=== PATIENT | female | born 1950 | race Two or more races ===

== ENCOUNTER 2025-03-08 09:14 | Outpatient (OUT) | payer MEDICARE, SELFPAY ==
--- OUTSIDE RECORDS SUMMARY | 2025-02-26 10:06 | XMS_ITS | Continuity of Care Document ---
Author Organization [facility] Address Unknown Care Team Providers Care Biology Tutor Name Role Phone HARPER KNIGHT Primary Care Physician Encounter [facility] [id number] Date(s): 02/26/25 - 02/26/[address] [address] Discharge Disposition: Home Attending Physician: NORA MILLARD MD Admitting Physician: NORA MILLARD MD Allergies, Adverse Reactions, Alerts Substance Criticality Severity Reaction Reaction Severity Status penicillins Unable to assess criticality Unknown Active Assessment and Plan Extracted from: Title:Clinical Document Author:NORA MILLARD Date:02/18/25 The patient s history of present illness, physical findings and plan of care have been reviewed. There are no changes. Future Appointments Functional Status 02/26/25 Family Member Travel History No recent t ravel Recent Travel History No recent travel Other exposure to Infectious Disease No Known Exposure/Symptoms Immunizations Given and Recorded Vaccine Date Status Refusal Reason zoster vaccine, inactivated 01/02/23 Recorded zoster vaccine, inactivated 10/30/22 Recorded Medications allopurinol 300 mg oral tablet 1 tab(s) ( 300 mg ), PO, Daily, # 30 tab(s), 0 Refill(s) Start Date: 02/06/23 Status: Ordered CBD Oil CBD Oil, 0 Refill(s) Start Date: 02/18/25 Status: Ordered hydrochlorothiazide-lisinopril 12.5 mg-10 mg oral tablet 1 tab(s), PO, Daily, # 30 tab(s), 0 Refill(s) Start Date: 02/06/23 Status: Ordered Metoprolol Tartrate 50 mg oral tablet 1 tab(s) ( 50 mg ), PO, BID, # 180 tab(s), 0 Refill(s) Start Date: 02/06/23 Status: Ordered Ozempic (1 mg dose) 4 mg/3 mL subcutaneous solution ( 1 mg ), SubQ, qWeek, 0 Refill(s) Start Date: 05/10/23 Status: Ordered sertraline 100 mg oral tablet 1 tab(s) ( 100 mg ), PO, Daily, 0 Refill(s) Start Date: 09/04/22 Status: Ordered Mental Status 02/26/25 Level of Consciousness Alert Problem List Condition Confirmation Course Effective Dates Status Health St atus Informant Arthritis Confirmed Active Lumbar degenerative disc disease Confirmed Active Chronic gout Confirmed Active HTN (hypertension) Confirmed Active Lumbar spondylosis Confirmed Active Prediabetes Confirmed Active Procedures Procedure Date Related Diagnosis Body Site Status Injection of sacroiliac join t using fluoroscopic guidance 1 02/25/25 Complete d Fluoroscopy guided radiofreq uency ablation 2 10/01/24 Completed Fluoroscopy guided radiofreq uency ablation 3 08/20/24 Completed Colonoscopy 01/13/24 Completed Facet joint nerve block 4 10/24/23 Completed Local anesthetic facet joint nerve block 5 08/22/23 Completed Facet joint nerve block 6 08/08/23 Completed Injection of sacroiliac joint 7 07/04/23 Completed Epidural steroid injection 8 05/09/23 Completed Fluoroscopy guided radiofreq uency ablation 9 02/05/23 Completed Facet joint nerve block 10 01/22/23 Completed Facet joint nerve block 11 01/08/23 Completed 1right 2Bilateral T9, 10, 11 3Bilateral L345 4BILATERAL T9, 10, 11 5BILATERAL T9, 10, 11 6BILATERAL T9, T10, T11 MEDIAL BRANCH BLOCK 7BILATERAL 8BILATERAL TFESI L4 9bilateral L2,3 AND L4,5 10BILATERAL L2345 11BILATERAL L2345 Results Laboratory List Name Date Glucose Level POCT 02/26/25 Most recent to oldest [Reference Range]: 1 Glucose, POC [74-118 mg/dL] 119 mg/dL 1 *HI* (02/26/25 9:25 AM) 1Result Comment: OPR_ID=IN_LIST,TGC FLAG = False Vital Signs Most recent to oldest [Reference Range]: 1 2 Height 166 cm (02/26/25 9:13 AM) Weight 122.5 kg (02/26/25 9:13 AM) Weight Dosing 122.500 kg (02/26/25 9:13 AM) Body Mass Index 44.45 kg/m2 (02/26/25 9:13 AM) Temperature Temporal [36.3-37.8 DegC] 36 .7 DegC (02/26/25 9:13 AM) Heart Rate Monitored [60-100 bpm] 66 bpm (02/26/25 10:02 AM) 66 bpm (02/26/25 9:13 AM) Respiratory Rate [14-20 br/min] 16 br/mi n (02/26/25 10:02 AM) 16 br/min (02/26/25 9:13 AM) Blood Pressure [90-120/60-80 mmHg] 121/7 2mmHg *HI* (02/26/25 10:02 AM) 116/72mmHg (02/26/25 9:13 AM) SpO2 [92-100 %] 94 % (02/26/25 10:02 AM) 97 % (02/26/25 9:13 AM) Oxygen Therapy Room air (02/26/25 10:02 AM) Room air (02/26/25 9:13 AM) Social History Social History Type Response Tobacco Never tobacco user T obacco Use:. Sex Female Sex Representation Female (finding) Hospital Discharge Instructions Patient Education 02/24/2025 11:20:20 Pain Procedure Home Care Instructions (CUSTOM) [facility] [address] [place] [address] Pain Procedure Home Care Instructions For the next 24 hours do not do any of the following activities: - Drive a car or operate heavy machinery - Drink alcoholic beverages - Make legal decisions or sign any contracts Please call the office at [phone] if you have any questions or develop any of the following: - Fever more than 101.2, chills - Urinary retention - Headache or worsening of your headache - Changes with your vision - Apply ice to the injection site every 2 hours as needed for 15 minutes at a time. Keep a barrier between the ice element and your skin to protect it. - There may be immediate pain relief after the procedure. The pain may return 4- 6 hours after the local anesthetic wears off. - Do not take a shower for the first 12 hours after the procedure. No bath for 24 hours. - Call your primary care provider if your blood sugar is greater than 250. Go to the Emergency Department if you lose control of your bladder, bowel or legs. Please keep track of your pain on a scale of 0 to10, with 10 being the worst pain and 0 being no pain. Bring that record to your follow up appointment. Using one of the pain scales included in these instructions, record your pain level at: 1 hour: 2 hours: 4 hours: History and physical note * Arabella Babb CMT: PERFORM Event Display: History and Physical Authored Date: [id number] * NORA MILLARD MD: PERFORM Event Display: History and Physical Authored Date: [id number] The patient???s history of present illness, physical findings and plan of care have been reviewed. There are no changes. [Electronically Signed on: 02/26/2025 09:15 EDT] NORA MILLARD MD [Electronically Signed on: 02/26/2025 09:08 EDT] Hannah Jameson RN [Verified on: 02/26/2025 09:15 EDT] NORA MILLARD MD [Transcribed on: 02/25/2025 12:46 EDT] BK Patient Care team information Care Team Personnel Name: HARPER KNIGHT Position: [facility] No Access Member Role: Primary Care Physician Address: [address] [place] [address] [place] [address]- Care Team Related Persons Name: ANGY CHAUDHARI Insurance Providers Guarantor name: KYLIE [facility] Information #: 2 Payer: [employer] SENIOR SUPPLEMENTAL Member Number: [id number] Policy Number: NA Health Plan Information #: 1 Payer: MEDICARE Member Number: [id number] Policy Number: NA
--- OUTSIDE RECORDS SUMMARY | 2025-03-08 09:25 | XMS_ITS | Clinical Summary ---
Author Organization [facility] Address [address] [place] [address] Care Team Providers Care Bean Sprout Grower Name Role Phone Musa Mendoza DPM Unavailable [phone] Allergies Active Allergy Reactions Criticality Noted Date Comments Penicillins Unknown 01/28/2023 Medications semaglutide (OZEMPIC) 1 mg/dose (4 mg/3 mL) pen one time a week. 05/10/2023 Active allopurinol (ZYLOPRIM) 300 mg tablet 1 (one) time each day at the same time. 02/06/2023 Active lisinopril-hydro CHLOROthiazide (ZESTORETIC) 10-12.5 mg per tablet Take 1 tablet by mouth every morning. 02/06/2023 Active metoprolol tartrate, short acting, (LOPRESSOR) 50 mg tablet Take 50 mg by mouth. 05/16/2023 Active sertraline (ZOLOFT) 100 mg tablet 1 (one) time each day at the same time. 09/04/2022 Active Glucosamine-Dexter droitin 250-200 mg tab 2 tablets. 11/28/2023 Active Cholecalciferol, Vitamin D3, (VITAMIN D) 25 mcg (1,000 unit) cap 25 mcg. 05/10/2023 Active VITAMIN B COMPLEX ORAL 1 tablet. 11/28/2023 Active MULTIVITAMIN ORAL 1 tablet. 11/28/2023 Active Social History Tobacco Use Types Packs/Day Years Used Date Smoking Tobacco: Never Assessed Area Deprivation Index Answer Date Henrry rded National Score (1-100), lower number is lower ri sk 55 07/30/2024 State Score (1-10), lower number is lower risk 3 07/30/2024 Data from: https://www.neighborhoodatlas.medicine.[facility].edu/. Last address used for calculation [address] 07/30/2024 Comments Unknown Sex and Gender Information Value Date Recorded Sex Assigned at Not on file Legal Sex Female 9:08 AM EST Gender Identity Not on file Sexual Orientation Not on file Plan of Treatment Health Maintenance Due Date Last Done Comments Anxiety Screening 1970 Depression Screening 1970 Hepatitis C Screening 1970 DTaP,Tdap,Td Vaccine (1 - Tdap) [address] Colonography 1997 Cologuard (FIT-DNA) 1997 Colonoscopy 1997 Colorectal Cancer Screening 1997 Diabetes Screening 1997 Fecal Occult Blood 1997 Lipid Screening 1997 Sigmoidoscopy 1997 Pneumococcal Vaccine: 50+ (1 of 1 - PCV) 2002 Medicare Annual Wellness Visit 04/09/2017 Bone Density Screening 2017 Covid-19 Vaccine ( - season) 2024 Advance Directive Discussion 09/09/2024 Influenza Vaccine (Season Ended) 2025 RSV Vaccine (1 - 1-dose 75+ series) 2027 Shingrix Vaccine Completed 01/02/2023, 10/30/2022 Insurance MEDICARE [employer] SUPPLEMENT Care Teams Bean Sprout Grower Relationship Specialty Start Date End Date Musa Mendoza DPM [address] [place] [address] Referring Podiatry 07/30/24
--- OUTSIDE RECORDS SUMMARY | 2025-03-08 09:25 | XMS_ITS | Clinical Summary ---
Author Organization [facility] Address [address] [place] [address] Care Team Providers Care Line Clearance Foreman Name Role Phone Unallocated, Noms Provider Primary Care Provi dexter Allergies Active Allergy Reactions Criticality Noted Date Comments Penicillin G Unknown 01/28/2023 Medications LISINOPRIL PO Lisinopril Activ e metoprolol succinate XL (Kapspargo) 50 MG 24 hr capsule 1 capsule 1 (one) time each day at the same time. Active Fexofenadine HCl (MUCINEX ALLERGY PO) Mucinex Active allopurinol (Zyloprim) 300 MG tablet 1 (one) time each day at the same time. Active sertraline (Zoloft) 100 MG tablet 1 (one) time each day at the same time. Active Ozempic, 0.25 or 0.5 MG/DOSE, 2 MG/3ML solution pen-injector INJECT 0.25 MG SUBCUTANEOUSLY WEEKLY 3 Active metoprolol tartrate (Lopressor) 50 MG tablet Take 50 mg by mouth Take with food. 3 Active lisinopril-hyd roCHLOROthiazi de 10-12.5 MG tablet Take 1 tablet by mouth in the morning. 3 Active meloxicam (Mobic) 15 MG tabletIndicati ons:Sinus tarsi syndrome of right ankle TAKE 1 TABLET BY MOUTH EVERY DAY 30 tablet 1 4 Active DHEA 50 MG capsule Daily 4 Active melatonin 10 MG tablet As Directed 4 Active meclizine (Antivert) 25 MG tablet 4 Active coenzyme Q-10 100 MG capsule Daily 4 Active Chromium Picolinate 1000 MCG tablet Daily 4 Active Active Problems Problem Noted Date Diagnosed Date HTN (hypertension) 03/09/2024 History of gastric bypass 03/09/2024 History of colon polyps 03/09/2024 Chronic gout 03/09/2024 Anxiety 03/09/2024 Prediabetes 03/09/2024 Abnormal gait 01/28/2023 Contracture, right ankle 01/28/2023 Primary localized osteoarthrosis of ankle and fo ot 01/28/2023 Right hip pain 01/28/2023 Tarsal tunnel syndrome 01/28/2023 Family History Relation Name Status Comments Father Mother Social History Tobacco Use Types Packs/Day Years Used Date Smoking Tobacco: Never Smokeless Tobacco: Never Tobacco Cessation:Counseling Given: No Alcohol Use Standard Drinks/Week Comments Never 0 (1 standard drink = 0.6 oz pur e alcohol) Comments Unknown Sex and Gender Information Value Date Recorded Sex Assigned at Not on file Legal Sex Female 11:39 PM EDT Gender Identity Not on file Sexual Orientation Not on file Last Filed Vital Signs Vital Sign Reading Time Taken Comments Blood Pressure - - Pulse - - Temperature - - Respiratory Rate - - Oxygen Saturation - - Inhaled Oxygen Concentration - - Weight 125 kg (275 lb) 07/20/2024 12:21 PM EST Height 165.1 cm (5' 5 ) 07/20/2024 12:21 PM EST Body Mass Index 45.76 07/20/2024 12:21 PM EST Plan of Treatment Health Maintenance Due Date Last Done Comments CT Colonography 1952 FIT-DNA 1952 FIT 1952 FOBT 1950 Medicare Annual Wellness (AWV) 1950 Sigmoidoscopy 1952 Mammogram 1992 Pneumococcal Vaccine: 65+ Ye ars (1 of 1 - PCV) 2002 Colonoscopy 01/13/2034 01/14/2024 Colorectal Cancer Screening 01/13/2034 Influenza Vaccine Completed 05/25/2024, , 05/30/2022, Additional history exists Insurance MEDICARE [employer] Care Teams Line Clearance Foreman Relationship Specialty Start Date End Date Unallocated, Noms Provider, [address] [place] [address] PCP - General Family Medicine 03/04/24
--- OUTSIDE RECORDS SUMMARY | 2025-03-08 09:25 | XMS_ITS | Encounter Summary ---
Author Organization [facility] Address [address] [place] [address] Care Team Providers Care Territory Account Manager Name Role Phone Musa Mendoza DPM Unavailable Source Comments In the event this information is protected by the Federal Confidentiality of Alcohol and Drug AbusePatient Records regulations: The Federal rules restrict any use of the information to criminally investigate or prosecute any alcohol or drug abuse patient.[facility] Encounter Details Date Type Department Care Team (Late st Contact Info) Description 11/02/2024 Telephone Orthopaedic Surgery [facility] [address] [place] [address] Brayden Nolen MD [address] [place] [address] Social History Tobacco Use Types Packs/Day Years Used Date Smoking Tobacco: Never Assessed Area Deprivation Index Answer Date Henrry rded National Score (1-100), lower number is lower ri sk 55 07/30/2024 State Score (1-10), lower number is lower risk 3 07/30/2024 Data from: https://www.neighborhoodatlas.medicine.[facility].edu/. Last address used for calculation [address] 07/30/2024 Comments Unknown Sex and Gender Information Value Date Recorded Sex Assigned at Not on file Legal Sex Female 9:08 AM EST Gender Identity Not on file Sexual Orientation Not on file documented as of this encounter Miscellaneous Notes * Telephone Encounter - Lisa Levine - 11/12/2024 9:[address] [facility] called again regarding message below. Need to know if any change in condition that would require a AFO? For insurance to cover it. It was denied. They need medical necessity. They need that to say in Dr. Jordan note if they could get that. Please advise. * Telephone Encounter - Boris Patient Assembly Mechanic Aurelia Payan - 11/02/2024 8:53 AM EST Name of Caller: Dipika Relationship to patient: [facility] Last visit in this department: 07/30/2024 Reason for Call: Other : Clinic calling because they received the medical records on the patient for 07/30/24 however the notes do not state why she needs a new AFO. Patient received an AFO in 2020 and they need to have records as to what changed with this patient involving radiology or anything. Pedro contact back with correct information. Callback number: [phone] Fax Number (if necessary): [phone] Additional info if needed (Prior Auth #, Claim #, etc???): N/A Aurelia Escalante Patient Assembly Mechanic Ccsr documented in this encounter Plan of Treatment Not on file documented as of this encounter Visit Diagnoses Not on filedocumented in this encounter Care Teams Territory Account Manager Relationship Specialty Start Date End Date Musa Mendoza DPM [address] [facility] [place] [address] Referring Podiatry 07/30/24 documented as of this encounter
--- OUTSIDE RECORDS SUMMARY | 2025-03-08 09:25 | XMS_ITS | Encounter Summary ---
Author Organization [facility] Address [address] [place] [address] Care Team Providers Care Human Resources Professional Name Role Phone Unallocated, Noms Provider Primary Care [facility] Encounter Details Date Type Department Care Team (Late st Contact Info) Description 06/22/2024 Orders Only [facility] [address] [place] [address] Musa Mendoza, DPM FACFAS [address] [place] [address] Social History Tobacco Use Types Packs/Day Years Used Date Smoking Tobacco: Never Smokeless Tobacco: Never Alcohol Use Standard Drinks/Week Comments Never 0 (1 standard drink = 0.6 oz pur e alcohol) Comments Unknown Sex and Gender Information Value Date Recorded Sex Assigned at Not on file Legal Sex Female 11:39 PM EDT Gender Identity Not on file Sexual Orientation Not on file documented as of this encounter Plan of Treatment Not on file documented as of this encounter Procedures Procedure Name Priority Date/Time Associated Diagnosis Comments MRI ANKLE RT WITHOUT CONTRAST Routine 06/22/2024 11:05 AM EDT documented in this encounter Results * MRI ANKLE RT WITHOUT CONTRAST (06/22/2024 11:05 AM EDT) Anatomical Region Laterality Modality Radiographic Chanel ging us Musa eMndoza DPM FACFAS IMG XR PROCEDURES Sole l Result documented in this encounter Visit Diagnoses Not on filedocumented in this encounter Care Teams Human Resources Professional Relationship Specialty Start Date End Date Unallocated, Noms Provider, [address] [place] [address] PCP - General Family Medicine 03/04/24 documented as of this encounter
--- NOTE | 2025-03-08 09:45 | XR_ITS ---
The [address] [address] Patient Name: KYLIE PAN MRN: [id number] date: 1950 Sex: F Assigned Patient Location: [facility] Current Patient Location: [facility] Accession/Order Number: [id number] Exam Date: 03/08/2025 09:52 Report Date: 03/08/2025 09:59 At the request of: ANGELA VILLANUEVA DPM Procedure: XR foot RT min 3V CLINICAL DATA: Chronic pain at the right foot and ankle. No injury. RIGHT ANKLE - 3 views COMPARISON: None Weightbearing AP, lateral and oblique views were obtained. There is osteopenia. There is no acute fracture or dislocation. There is narrowing of the tibiotalar joint. No osteochondral defects are seen. There is minor degenerative change at the medial malleolus. There are no significant soft tissue abnormalities. Atherosclerotic plaque is noted. XR/XR ankle RT min 3V IMPRESSION: OSTEOPENIA AND DEGENERATIVE CHANGES. NO ACUTE BONY FINDINGS. RIGHT FOOT - 3 views COMPARISON: None Standing AP, lateral and oblique views were obtained. There is osteopenia. There is flattening of the plantar arch. There is no acute fracture or dislocation. Subluxations are possible at the proximal interphalangeal joints of the second through fourth toes. A plantar calcaneal spur is noted. No additional hypertrophy is seen. There are no significant soft tissue abnormalities. IMPRESSION: NO ACUTE BONY FINDINGS. Impression dictated by: Kinsey Wilson M.D. 03/08/2025 9:59 AM Dictation Location: [place] [address] Electronically authenticated by: [id number] Y Date: 03/08/2025 09:59
--- NOTE | 2025-03-08 09:45 | XR_ITS ---
The [address] [address] Patient Name: KYLIE PAN MRN: [id number] date: 1950 Sex: F Assigned Patient Location: [facility] Current Patient Location: [facility] Accession/Order Number: [id number] Exam Date: 03/08/2025 09:52 Report Date: 03/08/2025 09:59 At the request of: ANGELA VILLANUEVA DPM Procedure: XR foot RT min 3V CLINICAL DATA: Chronic pain at the right foot and ankle. No injury. RIGHT ANKLE - 3 views COMPARISON: None Weightbearing AP, lateral and oblique views were obtained. There is osteopenia. There is no acute fracture or dislocation. There is narrowing of the tibiotalar joint. No osteochondral defects are seen. There is minor degenerative change at the medial malleolus. There are no significant soft tissue abnormalities. Atherosclerotic plaque is noted. XR/XR foot RT min 3V IMPRESSION: OSTEOPENIA AND DEGENERATIVE CHANGES. NO ACUTE BONY FINDINGS. RIGHT FOOT - 3 views COMPARISON: None Standing AP, lateral and oblique views were obtained. There is osteopenia. There is flattening of the plantar arch. There is no acute fracture or dislocation. Subluxations are possible at the proximal interphalangeal joints of the second through fourth toes. A plantar calcaneal spur is noted. No additional hypertrophy is seen. There are no significant soft tissue abnormalities. IMPRESSION: NO ACUTE BONY FINDINGS. Impression dictated by: Kinsey Wilson M.D. 03/08/2025 9:59 AM Dictation Location: [place] [address] Electronically authenticated by: [id number] Y Date: 03/08/2025 09:59
== END 2025-03-08 09:15 | disposition home or self-care (01) ==
LOC: RAD 09:24
PROVIDERS: Visit Provider Podiatrist Foot & Ankle Surgery
DX: M25.571 Pain in right ankle and joints of right foot (principal); M79.671 Pain in right foot; M85.871 Other specified disorders of bone density and structure, right ankle and foot
CPT/HCPCS: 73610; 73630